=== PATIENT | male | born 1950 | race African-American/Black ===

== ENCOUNTER 2016-10-29 16:20 | Emergency (ER) | payer MEDICARE, MEDICAID ==
[~2016-10-29] VITALS: Ht 185.4 cm; Wt 75.0 kg
[~2016-10-29 16:20] MED LIST: AMLO5TAB2 PO
[2016-10-29 16:21] VITALS: BP 125/73; PULSE 83; RESP 14; TEMP 98.2; O2SAT 98
--- NOTE | 2016-10-29 16:30 | PD ---
HPI . right great toe laceration Chief Complaint: Laceration/Skin Injury Time Seen by Provider: 16:30 Travel History International Travel<30 days: No Contact w/Intl Traveler<30days: No Traveled to known affect area: No History of Present Illness HPI 66 yr old male here with right great toe laceration he sustained earlier today while working with some metal. He says the blade popped off a device he was using and fell down cutting his toe. He was wearing flip flops. He does not recall date of his last tetanus. PFSH Past Medical History Blood Disorders: No Cancer: No Cardiovascular Problems: No Diminished Hearing: No Endocrine: No Gastrointestinal Disorders: No Genitourinary: No Hypertension: Yes Implanted Vascular Access Dvce: No Musculoskeletal: Yes (NECK SLIPPED DISCS) Neurologic: No Psychiatric: No Reproductive: No Respiratory: No Immunizations Current: No ?: Not Past Surgical History Eye Surgery: Yes (GLAUCOMA) Tonsillectomy: Yes Other Surgery: Yes Social History Alcohol Use: No Tobacco Use: Yes (06/25 PPD) Substance Use: No Allergies-Medications (Allergen,Severity, Reaction): Coded Allergies: No Known Allergies (Verified , 05/29/16) Reported Meds & Prescriptions Reported Meds & Active Scripts Active Amlodipine (Amlodipine Besylate) 5 Mg Tab 5 Mg PO DAILY Review of Systems General / Constitutional: No: Fever Eyes: No: Visual changes HENT: No: Headaches Cardiovascular: No: Chest Pain or Discomfort Respiratory: No: Shortness of Breath Gastrointestinal: No: Abdominal Pain Genitourinary: No: Dysuria Musculoskeletal: No: Pain Skin: Positive Other (right great toe laceration ), No Rash Neurologic: No: Weakness Psychiatric: No: Depression Endocrine: No: Polydipsia Hematologic/Lymphatic: No: Easy Bruising Physical Exam Narrative GENERAL: AAO x 3, no acute distress, Well-nourished, well-developed patient. SKIN: Warm and dry. No visible rashes or bruising. 2 cm laceration over the right great toe/ no tendon, bone, nerve, or vessel injury HEAD: Normocephalic and atraumatic. EYES: No scleral icterus. No injection or drainage. ENT: No nasal drainage noted. Mucous membranes pink. Airway patent. NECK: Supple, trachea midline. No JVD. CARDIOVASCULAR: Regular rate and rhythm without murmurs, gallops, or rubs. RESPIRATORY: Breath sounds equal bilaterally. No accessory muscle use. No rhonchi or rales. GASTROINTESTINAL: Abdomen soft, non-tender, nondistended. EXTREMITIES: No cyanosis or edema. FULL ROM B/L feet and toes BACK: Nontender without obvious deformity. No CVA tenderness. PSYCH: AAO x 3, normal affect. Data Data Last Documented VS Vital Signs Date Time Temp Pulse Resp B/P Pulse Ox O2 Delivery O2 Flow Rate FiO2 10/29/16 16:21 98.2 83 14 125/73 98 Orders Tetanus/Diphtheria Tox Adult (Tetanus/Di (10/29/16 16:45) Lidocaine 1% Inj (50 Ml) (Xylocaine 1% I (10/29/16 16:45) Change Dressing (10/29/16 16:54) MDM Medical Decision Making Medical Screen Exam Complete: Yes Emergency Medical Condition: Yes Medical Record Reviewed: Yes Differential Diagnosis right great toe laceration, less likely fracture, less likely amputation Narrative Course 66 yr old male here with right great toe laceration he sustained earlier today while working with some metal. He says the blade popped off a device he was using and fell down cutting his toe. He was wearing flip flops. He does not recall date of his last tetanus. Patient seen and examined. He has a small 2 cm laceration over the top of the right great toe. Area was repaired with 5 sutures. Patient tolerated without incident. Tetanus was administered without incident. Patient was advised the sutures will need to be removed in 7-10 days. Patient verbalized understanding of instructions, questions were answered, and thanked me for their care. I advised them if their condition worsens, please return to the nearest emergency room for further care. Procedures Procedure Narrative LACERATION LOCATION: right great toe LENGTH:2 cm NUMBER OF STITCHES/KEERTHI:5 REPAIR: The area of the laceration was prepped with Betadine and sterilely draped. The laceration was infiltrated with 1% lidocaine. The wound was copiously irrigated and explored without evidence of foreign body, tendon injury or neurovascular injury. The wound was closed using 4-0 Ethilon. This was a single layer repair. A sterile dressing was applied. The patient was advised to keep the dressing clean and dry. Patient tolerated the procedure well. Diagnosis Primary Impression: Toe laceration Qualified Code: S91.111A - Laceration of right great toe without foreign body present or damage to nail, initial encounter Patient Instructions: General Instructions, Laceration (ED) Additional Instructions: Keep area clean and dry. Use gauze as we discussed and change 1-2 times a day. Watch for signs of infection: fever, redness, swelling, warmth, pus or drainage , red streaks around the cut, and increased pain from the area. If you received a tetanus shot, you may experience tenderness at the injection site. This is normal. Please return to emergency department if your symptoms return or worsen. Follow up with your primary care provider. These (5) sutures will need to be removed in the next 7-10 days. Please return to the emergency department or follow up with your primary care doctor. Disposition: 01 DISCHARGE HOME Jadyn Calle October 29, 2016 16:30
[2016-10-29] MEDS ORDERED: TETANUS/DIPHTHERIA TOXOID ADULT 0.5 ML VIAL IM ONE (16:45)
[2016-10-29] MEDS ORDERED: LIDOCAINE HCL 1% 50 ML VIAL INFIL ONE (16:45)
== END 2016-10-29 17:10 | disposition home or self-care (01) ==
LOC: NEPK 16:20
DX: S91.111A Laceration without foreign body of right great toe without damage to nail, initial encounter (principal); W26.8XXA Contact with other sharp object(s), not elsewhere classified, initial encounter; Z23 Encounter for immunization
CPT/HCPCS: 12001; 90471; 90714

== ENCOUNTER 2017-02-09 06:31 | Emergency (ER) | payer MEDICARE, MEDICAID ==
[~2017-02-09] VITALS: Ht 185.4 cm; Wt 70.0 kg
[2017-02-09 06:32] VITALS: BP 147/68; PULSE 70; RESP 16; TEMP 98.4; O2SAT 96
[2017-02-09] MEDS ORDERED: PRED50 PO (07:18)
--- NOTE | 2017-02-09 07:18 | PD ---
HPI . Coughing and some body aches for 2 days Chief Complaint: Cold / Flu Symptoms Time Seen by Provider: 07:12 Travel History International Travel<30 days: No Contact w/Intl Traveler<30days: No Traveled to known affect area: No History of Present Illness HPI 66-year-old male who denies any past medical history other than tobaccoism here with complaints of 2 days worth of coughing frequently, sore throat and it occasional body aches. Patient tells me that he had a sudden onset of frequent coughing. He denies any fever or chills. He is a smoker. He has no other complaints. His primary care providers Dr. Barnett. [facility] Past Medical History Blood Disorders: No Cancer: No Cardiovascular Problems: Yes (HTN) Diminished Hearing: No Endocrine: No Gastrointestinal Disorders: No Genitourinary: No Hypertension: Yes Implanted Vascular Access Dvce: No Musculoskeletal: Yes (NECK SLIPPED DISCS) Neurologic: No Psychiatric: No Reproductive: No Respiratory: No Immunizations Current: No Past Surgical History Eye Surgery: Yes (GLAUCOMA) Tonsillectomy: Yes Other Surgery: Yes Social History Alcohol Use: No Tobacco Use: Yes (1/2 PPD) Substance Use: No Allergies-Medications (Allergen,Severity, Reaction): Coded Allergies: No Known Allergies (Verified , 02/09/17) Reported Meds & Prescriptions Reported Meds & Active Scripts Active Prednisone 50 Mg Tab 50 Mg PO DAILY Review of Systems General / Constitutional: No: Fever Eyes: No: Visual changes HENT: Positive: Sore Throat, No: Headaches Cardiovascular: No: Chest Pain or Discomfort Respiratory: Positive: Cough, No: Shortness of Breath Gastrointestinal: No: Abdominal Pain Genitourinary: No: Dysuria Musculoskeletal: No: Pain Skin: No Rash Neurologic: No: Weakness Psychiatric: No: Depression Endocrine: No: Polydipsia Hematologic/Lymphatic: No: Easy Bruising Physical Exam Narrative GENERAL: AAO x 3, no acute distress, Well-nourished, well-developed patient. SKIN: Warm and dry. No visible rashes or bruising. HEAD: Normocephalic and atraumatic. EYES: No scleral icterus. No injection or drainage. EOM intact, PERRLA ENT: No nasal drainage noted. Mucous membranes pink. Airway patent. No oropharynx abnormality. No posterior pharynx erythema, edema or exudate. TMs normal bilaterally. NECK: Supple, trachea midline. No JVD. No lymphadenopathy CARDIOVASCULAR: Regular rate and rhythm without murmurs, gallops, or rubs. RESPIRATORY: Breath sounds equal bilaterally. No accessory muscle use. No rhonchi or rales. No wheezing GASTROINTESTINAL: Abdomen soft, non-tender, nondistended. EXTREMITIES: No cyanosis or edema. BACK: No obvious deformity. NEURO: CN II-12 intact, PSYCH: AAO x 3, normal affect. Data Data Last Documented VS Vital Signs Date Time Temp Pulse Resp B/P Pulse Ox O2 Delivery O2 Flow Rate FiO2 02/09/17 06:32 98.4 70 16 147/68 96 MDM Medical Decision Making Medical Screen Exam Complete: Yes Emergency Medical Condition: Yes Medical Record Reviewed: Yes Differential Diagnosis Acute bronchitis, pharyngitis, less likely pneumonia Narrative Course 66-year-old male here with what appears to be a viral bronchitis. Examination is fairly benign. He does have a slight dry cough. Imaging not recommended. I explained to patient I believe this is viral in nature. I do not believe this is a pneumonia. Recommend a course of steroids. I advised him that he will need to follow-up with his primary care provider. Smoking cessation discussed. Patient verbalized understanding of instructions, questions were answered, and thanked me for their care. I advised them if their condition worsens, please return to the nearest emergency room for further care. Diagnosis Primary Impression: Acute bronchitis Qualified Code: J20.9 - Acute bronchitis, unspecified organism Patient Instructions: General Instructions Additional Instructions: As we discussed the cough can last 6-8 weeks. Take medications as prescribed. If you are a smoker, try to quit. Follow up with your primary care provider. If you develop sudden onset or worsening of shortness or breath, please go to the nearest emergency room. Please return to emergency department if your symptoms return or worsen. Follow up with your primary care provider. Take medications as prescribed. Med/Other Pt SpecificInfo: Prescription(s) given Scripts Prednisone 50 Mg Tab50 Mg PO DAILY #5 TAB Prov:Giovanna Beth MD 02/09/17 Disposition: 01 DISCHARGE HOME Condition: Stable Jadyn Calle Feb 09, 2017 07:18
== END 2017-02-09 07:31 | disposition home or self-care (01) ==
LOC: NEPD 06:31
DX: J20.9 Acute bronchitis, unspecified (principal); R07.0 Pain in throat; M79.1 Myalgia; I10 Essential (primary) hypertension; F17.200 Nicotine dependence, unspecified, uncomplicated; Z86.79 Personal history of other diseases of the circulatory system; Z87.39 Personal history of other diseases of the musculoskeletal system and connective tissue
CPT/HCPCS: 99283

== ENCOUNTER 2017-12-10 10:39 | Observation (INO) | payer MEDICARE, MEDICAID ==
[~2017-12-10] VITALS: Ht 185.4 cm; Wt 80.0 kg
[2017-12-10] VITALS (8 sets, daily range): BP systolic 144–174; BP diastolic 72–93; PULSE 56–75; RESP 16–20; TEMP 97.5–97.7; O2SAT 95–99
[~2017-12-10 10:39] MED LIST changes: -AMLO5TAB2 PO; +PRED50 PO
[2017-12-10] MEDS ORDERED: SODIUM CHLORIDE 0.9% FLUSH 10 ML FLUSH IVF PRN (11:00)
[2017-12-10] MEDS ORDERED: ASPIRIN 325 MG TAB PO ONE (11:00)
--- NOTE | 2017-12-10 11:00 | PD ---
HPI Chief Complaint: Chest Pain Time Seen by Provider: 10:53 Travel History International Travel<30 days: No Contact w/Intl Traveler<30days: No Traveled to known affect area: No History of Present Illness HPI This patient complains of chest pain. Describes it as an aching and a pressure. He is vaguely having and across the sternum. Duration 1 week. Severity is moderate. It is not exertional. No alleviating factors. No exacerbating factors. He denies fever or chest wall injury or pleuritic component to the symptoms. PFSH Past Medical History Blood Disorders: No Cancer: No Cardiovascular Problems: Yes (HTN) Diminished Hearing: No Endocrine: No Gastrointestinal Disorders: No Genitourinary: No Hypertension: Yes Implanted Vascular Access Dvce: No Musculoskeletal: Yes (NECK SLIPPED DISCS) Neurologic: No Psychiatric: No Reproductive: No Respiratory: No Immunizations Current: No Past Surgical History Eye Surgery: Yes (GLAUCOMA) Tonsillectomy: Yes Other Surgery: Yes Social History Alcohol Use: No Tobacco Use: Yes (/2 PPD) Substance Use: No Allergies-Medications (Allergen,Severity, Reaction): Coded Allergies: No Known Allergies (Verified Adverse Reaction, Unknown, 12/10/17) Reported Meds & Prescriptions Reported Meds & Active Scripts Active Prednisone 50 Mg Tab 50 Mg PO DAILY Review of Systems General / Constitutional: No: Fever Eyes: No: Visual changes HENT: No: Headaches Cardiovascular: Positive: Chest Pain or Discomfort Respiratory: No: Shortness of Breath Gastrointestinal: No: Abdominal Pain Genitourinary: No: Dysuria Musculoskeletal: No: Pain Skin: No Rash Neurologic: No: Weakness Psychiatric: No: Depression Endocrine: No: Polydipsia Hematologic/Lymphatic: No: Easy Bruising Physical Exam Narrative GENERAL: Well-nourished, well-developed patient in no apparent distress. SKIN: Focused skin assessment reveals no rash and nodules. Skin is Warm and dry. HEAD: Atraumatic. Normocephalic. EYES: Pupils equal and round. No scleral icterus. No injection or drainage. ENT: No nasal bleeding or discharge. Mucous membranes pink and moist. NECK: Trachea midline. No JVD. CARDIOVASCULAR: Regular rate and rhythm. No murmur appreciated. RESPIRATORY: No accessory muscle use. Clear to auscultation. Breath sounds equal bilaterally. GASTROINTESTINAL: Abdomen soft, non-tender, nondistended. Hepatic and splenic margins not palpable. MUSCULOSKELETAL: No obvious deformities. No clubbing. No cyanosis. No edema. NEUROLOGICAL: Awake and alert. No obvious cranial nerve deficits. Motor grossly within normal limits. Normal speech. PSYCHIATRIC: Appropriate mood and affect; insight and judgment normal. Data Data Last Documented VS Vital Signs Date Time Temp Pulse Resp B/P (MAP) Pulse Ox O2 Delivery O2 Flow Rate FiO2 12/10/17 12:27 64 20 156/72 (100) 95 Room Air 12/10/17 10:42 97.7 Orders Orders Electrocardiogram (12/10/17 10:57) Basic Metabolic Panel (Bmp) (12/10/17 10:57) Ckmb (Isoenzyme) Profile (12/10/17 10:57) Complete Blood Count With Diff (12/10/17 10:57) Prothrombin Time / Inr (Pt) (12/10/17 10:57) Act Partial Throm Time (Ptt) (12/10/17 10:57) Troponin I (12/10/17 10:57) Chest, Single Ap (12/10/17 10:57) Ecg Monitoring (12/10/17 10:57) Iv Access Insert/Monitor (12/10/17 10:57) Oximetry (12/10/17 10:57) Aspirin (Aspirin) (12/10/17 11:00) Sodium Chloride 0.9% Flush (Ns Flush) (12/10/17 11:00) CKMB (12/10/17 11:20) CKMB% (12/10/17 11:20) Labs Laboratory Tests Test 12/10/17 11:20 White Blood Count 3.4 TH/MM3 Red Blood Count 4.20 MIL/MM3 Hemoglobin 13.1 GM/DL Hematocrit 38.6 % Mean Corpuscular Volume 92.0 FL Mean Corpuscular Hemoglobin 31.1 PG Mean Corpuscular Hemoglobin Concent 33.8 % Red Cell Distribution Width 14.1 % Platelet Count 238 TH/MM3 Mean Platelet Volume 7.3 FL Neutrophils (%) (Auto) 45.3 % Lymphocytes (%) (Auto) 37.8 % Monocytes (%) (Auto) 14.8 % Eosinophils (%) (Auto) 1.8 % Basophils (%) (Auto) 0.3 % Neutrophils # (Auto) 1.6 TH/MM3 Lymphocytes # (Auto) 1.3 TH/MM3 Monocytes # (Auto) 0.5 TH/MM3 Eosinophils # (Auto) 0.1 TH/MM3 Basophils # (Auto) 0.0 TH/MM3 CBC Comment DIFF FINAL Differential Comment Prothrombin Time 10.7 SEC Prothromb Time International Ratio 1.1 RATIO Activated Partial Thromboplast Time 27.5 SEC Blood Urea Nitrogen 21 MG/DL Creatinine 1.24 MG/DL Random Glucose 102 MG/DL Calcium Level 8.5 MG/DL Sodium Level 141 MEQ/L Potassium Level 3.9 MEQ/L Chloride Level 110 MEQ/L Carbon Dioxide Level 23.8 MEQ/L Anion Gap 7 MEQ/L Estimat Glomerular Filtration Rate 70 ML/MIN Total Creatine Kinase 271 U/L Creatine Kinase MB 1.1 NG/ML Troponin I LESS THAN 0.02 NG/ML MDM Medical Decision Making Medical Screen Exam Complete: Yes Emergency Medical Condition: Yes Medical Record Reviewed: Yes Differential Diagnosis Differential diagnosis includes NH, angina, pericarditis, pleurisy, GERD, anxiety. Narrative Course I have reviewed the patient's electronic medical record. IV placed and labs sent I gave him an aspirin I reviewed his EKG which shows sinus rhythm but no ST elevation or ectopy Reviewed his chest x-ray which is negative General blood counts and metabolic studies are normal including the first set of cardiac enzymes He will be a 23 hour observation in the chest pain center to rule out cardiac cause of his symptoms Diagnosis Primary Impression: Chest pain Qualified Codes: R07.9 - Chest pain, unspecified Admitting Information Admitting Physician Requests: Observation Jermain Chavez MD Dec 10, 2017 11:00
[2017-12-10 11:40] LABS: AUTOMATED NEUTROPHIL # 1.6 TH/MM3 (1.8-7.7); BASOPHIL % 0.3 % (0.0-2.0); EOSINOPHIL # 0.1 TH/MM3 (0-0.4); EOSINOPHIL % 1.8 % (0.0-4.0); HEMATOCRIT 38.6 % (39.0-51.0); HEMOGLOBIN 13.1 GM/DL (13.0-17.0); LYMPH % 37.8 % (9.0-44.0); LYMPHOCYTE # 1.3 TH/MM3 (1.0-4.8); MEAN CORPUSCULAR HEMOGLOBIN 31.1 PG (27.0-34.0); MEAN CORPUSCULAR HGB CONC 33.8 % (32.0-36.0); MEAN PLATELET VOLUME 7.3 FL (7.0-11.0); MONO % 14.8 % (0.0-8.0); MONOCYTE # 0.5 TH/MM3 (0-0.9); NEUT % 45.3 % (16.0-70.0); PLATELET COUNT 238 TH/MM3 (150-450); RED CELL DISTRIBUTION WIDTH 14.1 % (11.6-17.2); WHITE BLOOD COUNT 3.4 TH/MM3 (4.0-11.0)
[2017-12-10 11:46] LABS: INTERNATIONAL NORMALIZED RATIO 1.1 RATIO; PROTHROMBIN TIME - PATIENT 10.7 SEC (9.8-11.6)
--- NOTE | 2017-12-10 11:49 | RADRPT ---
EXAM DATE: 12/10/2017 11:24 AM EDT AGE/SEX: 67 years / Male INDICATIONS: Chest pressure. CLINICAL DATA: This is the patient's initial encounter. Patient reports that signs and symptoms have been present for 1 week and indicates a pain score of 5/10. MEDICAL/SURGICAL HISTORY: . previous smoker None. COMPARISON: [facility] [place], 05/29/[place]. . FINDINGS: A single AP view of the chest demonstrates the lungs to be symmetrically aerated without evidence of mass, infiltrate or effusion. The lungs are hyperaerated bilaterally. The cardiomediastinal contours are unremarkable. Osseous structures are intact. CONCLUSION: No acute intrathoracic disease. Stable examination. Electronically signed by: Saroj Earl MD 12/10/2017 11:47 AM EDT
[2017-12-10 11:56] LABS: BICARBONATE 23.8 MEQ/L (21.0-32.0); BLOOD UREA NITROGEN 21 MG/DL (7-18); CALCIUM 8.5 MG/DL (8.5-10.1); CHLORIDE 110 MEQ/L (98-107); CREATININE 1.24 MG/DL (0.60-1.30); GLOMERULAR FILTRATION RATE 70 ML/MIN (>89); GLUCOSE,RANDOM 102 MG/DL (74-106); SODIUM (NA) 141 MEQ/L (136-145)
[2017-12-10 12:00] LABS: TROPONIN I LESS THAN 0.02 NG/ML (0.02-0.05)
[2017-12-10] MEDS ORDERED: ACETAMINOPHEN 500 MG CPLT PO PRN (14:00)
[2017-12-10] MEDS ORDERED: NITROGLYCERIN 0.4 MG SL 25 TABS/BTL SL PRN (14:00)
[2017-12-10] MEDS ORDERED: ONDANSETRON ODT 4 MG TAB PO PRN (14:00)
--- NOTE | 2017-12-10 14:58 | HHI.HP ---
HPI Primary Care Physician Terence Barnett DO Chief Complaint Chest pain History of Present Illness 67-year-old male with 50 pack year history of tobacco use presents to ER for further evaluation of nonexertional chest pain. Onset one week. Location substernal. Characterized as pressure. Severity moderate. No radiation. Duration constant, notices more during waking hours. No associated symptoms of nausea, vomiting, dyspnea, or diaphoresis. No precipitating or relieving. Endorses similar pain with "heat exhaustion" years ago. Came to ER for further evaluation due to prolonged duration of discomfort. No recent illness, fever, chills, or cough. Quit smoking 1 year ago. No known COPD. Review of Systems General: No fatigue, weakness, fever, chills, recent illness, or change in appetite. Has been in his general state of health HEENT: No CAMPOS, no nasal congestion or drainage, no dysphasia CV: Continues to have chest pressure as stated above. RESP: No SOB, cough, wheeze, history of COPD or asthma. Former smoker. GI: No nausea, vomiting, or bowel change. No unintentional weight gain or weight loss. : No dysuria, urgency, frequency EXT: No lower leg edema, no paraesthesias, no claudication MS: No discomfort, injury or change in ROM NEURO: No dizziness, difficulty with balance, LOC, or motor/sensory deficits PSYCH: No anxiety, depression, suicidal ideation SKIN: No rashes, no concerning lesions Past Family Social History Allergies: Coded Allergies: No Known Allergies (Verified Allergy, Unknown, 12/10/17) Past Medical History Hypertension, glaucoma Past Surgical History Right eye cataract surgery (3 weeks ago), tonsillectomy Reported Medications Reported Meds & Active Scripts Active Glaucoma eyedrops daily name unknown Active Ordered Medications Current Medications Medications (Trade) Dose Ordered Sig/Trudy Route Start Time Stop Time Status Last Admin (NS Flush) 2 ml UNSCH PRN IVF 12/10/17 11:00 (NS Flush) 2 ml BID IV FLUSH 12/10/17 21:00 (Tylenol) 500 mg Q4H PRN PO 12/10/17 14:00 (Nitrostat Sl) 0.4 mg Q5M PRN SL 12/10/17 14:00 (Aspirin) 325 mg DAILY PO 12/11/17 09:00 (Zofran Odt) 4 mg Q6H PRN PO 12/10/17 14:00 Social History Reports history of hypertension, states he quit taking medication years ago when his primary doctor never restarted medication. No known diabetes, hyperlipidemia, or coronary artery disease. Former smoker, [id number] history. Quit one year ago. Denies any alcohol or illegal drug use. Past cardiac testing 05/30/16 Lexiscan-no evidence of perfusion defects. EF 41%. Normal wall motion. Physical Exam Vital Signs Vital Signs Date Time Temp Pulse Resp B/P (MAP) Pulse Ox O2 Delivery O2 Flow Rate FiO2 12/10/17 14:35 97.7 56 18 174/93 (120) 99 12/10/17 12:27 64 20 156/72 (100) 95 Room Air 12/10/17 11:51 64 18 98 Room Air 12/10/17 11:30 62 18 153/72 (99) 98 Room Air 12/10/17 10:42 97.7 75 20 144/80 (101) 97 Physical Exam GENERAL: Alert WN, WD, NAD, pleasant, tall, thin -[place] male HEAD: NC, AT EYES: Sclera clear, conjunctiva without injection, pupils equal and round, cataract left eye ENT: Mucous membranes pink and moist CV: RRR, without murmur, rub, or gallop, no JVD, no S3-S4. No carotid bruits. Chest wall nontender with palpation. RESP: Clear lungs throughout bilateral, no crackles, wheeze, rhonchi, symmetrical chest rise, nonlabored, able to speak in full sentences ABD: Soft, NT, ND, no masses, positive bowel tones EXT: Pulses +2x4, no dependent edema, right ankle large, soft tissue mass MS: Normal tone x4 extremities, no obvious deformities, full range of motion NEURO: CN II through CN XII grossly intact, motor strength 5/5, gait WNL PSYCH: A+O x3, pleasant affect, appropriate speech, mood, insight and judgment SKIN: Normal turgor, normal texture, no lesions, no rashes Laboratory Laboratory Tests Test 12/10/17 11:20 White Blood Count 3.4 Red Blood Count 4.20 Hemoglobin 13.1 Hematocrit 38.6 Mean Corpuscular Volume 92.0 Mean Corpuscular Hemoglobin 31.1 Mean Corpuscular Hemoglobin Concent 33.8 Red Cell Distribution Width 14.1 Platelet Count 238 Mean Platelet Volume 7.3 Neutrophils (%) (Auto) 45.3 Lymphocytes (%) (Auto) 37.8 Monocytes (%) (Auto) 14.8 Eosinophils (%) (Auto) 1.8 Basophils (%) (Auto) 0.3 Neutrophils # (Auto) 1.6 Lymphocytes # (Auto) 1.3 Monocytes # (Auto) 0.5 Eosinophils # (Auto) 0.1 Basophils # (Auto) 0.0 CBC Comment DIFF FINAL Differential Comment Prothrombin Time 10.7 Prothromb Time International Ratio 1.1 Activated Partial Thromboplast Time 27.5 Blood Urea Nitrogen 21 Creatinine 1.24 Random Glucose 102 Calcium Level 8.5 Sodium Level 141 Potassium Level 3.9 Chloride Level 110 Carbon Dioxide Level 23.8 Anion Gap 7 Estimat Glomerular Filtration Rate 70 Total Creatine Kinase 271 Creatine Kinase MB 1.1 Troponin I LESS THAN 0.02 Result Diagram: 12/10/17 1120 12/10/17 1120 Imaging Last 48 hours Impressions Chest X-Ray 12/10/17 1057 Signed Impressions: CONCLUSION: No acute intrathoracic disease. Stable examination. Course EKG Normal sinus rhythm, normal axis, no ST-T segment changes, criteria for LVH Caprini VTE Risk Assessment Caprini VTE Risk Assessment: Mod/High Risk (score >= 2) Caprini Risk Assessment Model Point Value = 1 Point Value = 2 Point Value = 3 Point Value = 5 Age 41-60 Minor surgery BMI > 25 kg/m2 Swollen legs Varicose veins or History of unexplained or recurrent spontaneous Oral contraceptives or hormone replacement Sepsis (< 1 month) Serious lung disease, including pneumonia (< 1 month) Abnormal pulmonary function Acute myocardial infarction Congestive heart failure (< 1 month) History of inflammatory bowel disease Medical patient at bed rest Age 61-74 Arthroscopic surgery Major open surgery (> 45 min) Laparoscopic surgery (> 45 min) Malignancy Confined to bed (> 72 hours) Immobilizing plaster cast Central venous access Age >= 75 History of VTE Family history of VTE Factor V Leiden Prothrombin [id number] Lupus anticoagulant Anticardiolipin antibodies Elevated serum homocysteine Heparin-induced thrombocytopenia Other congenital or acquired thrombophilia Stroke (< 1 month) Elective arthroplasty Hip, pelvis, or leg fracture Acute spinal cord injury (< 1 month) Prophylaxis Regimen Total Risk Factor Score Risk Level Prophylaxis Regimen 0-1 Low Early ambulation 2 Moderate Order ONE of the following: *Sequential Compression Device (SCD) *Heparin 5000 units SQ BID 3-4 Higher Order ONE of the following medications: *Heparin 5000 units SQ TID *Enoxaparin/Lovenox 40 mg SQ daily (WT < 150 kg, CrCl > 30 mL/min) *Enoxaparin/Lovenox 30 mg SQ daily (WT < 150 kg, CrCl > 10-29 mL/min) *Enoxaparin/Lovenox 30 mg SQ BID (WT < 150 kg, CrCl > 30 mL/min) AND/OR *Sequential Compression Device (SCD) 5 or more Highest Order ONE of the following medications: *Heparin 5000 units SQ TID (Preferred with Epidurals) *Enoxaparin/Lovenox 40 mg SQ daily (WT < 150 kg, CrCl > 30 mL/min) *Enoxaparin/Lovenox 30 mg SQ daily (WT < 150 kg, CrCl > 10-29 mL/min) *Enoxaparin/Lovenox 30 mg SQ BID (WT < 150 kg, CrCl > 30 mL/min) AND *Sequential Compression Device (SCD) Assessment and Plan Assessment and Plan #1 Atypical chest pain-admitted to chest pain center. Rule out ACS with 3 sets of EKGs and cardiac enzymes. Monitor on telemetry overnight. Will be seen and evaluated by Dr. Althea Brady. Discussed options for likely cardiac testing in a.m. Most likely will require chemical stress testing, he was unable to achieve target heart rate during last exercise cardiac exam. #2 Hypertension-continue to monitor, amlodipine 5 mg p.o. daily, discussed importance of tight blood pressure control, follow-up with Dr. Barnett upon discharge. Arlen Epperson Dec 10, 2017 14:58
[2017-12-10] MEDS: amLODIPine BESYLATE 5 MG TAB PO SCH (15:03)
[2017-12-10 15:46] LABS: TROPONIN I LESS THAN 0.02 NG/ML (0.02-0.05)
[2017-12-10 18:17] LABS: TROPONIN I LESS THAN 0.02 NG/ML (0.02-0.05)
[2017-12-10] MEDS: SODIUM CHLORIDE 0.9% FLUSH 10 ML FLUSH IV FLUSH SCH (23:10)
[2017-12-11 00:32] VITALS: BP 139/60; PULSE 65; RESP 18; TEMP 97.5; O2SAT 98
[2017-12-11 04:22] VITALS: BP 147/67; PULSE 61; RESP 17; TEMP 97.6; O2SAT 98
[2017-12-11 08:00] VITALS: BP 142/78; PULSE 63; RESP 18; TEMP 98.2; O2SAT 99
[2017-12-11] MEDS ORDERED: ASPIRIN 325 MG TAB PO SCH (09:00)
[2017-12-11] MEDS: amLODIPine BESYLATE 5 MG TAB PO SCH (09:12)
[2017-12-11] MEDS: SODIUM CHLORIDE 0.9% FLUSH 10 ML FLUSH IV FLUSH SCH (09:13)
--- NOTE | 2017-12-11 10:03 | PD.CARD.PN ---
Subjective Subjective Remarks Slept well, continues to have chest pressure, also reports sour taste and substernal burning. Objective Medications Current Medications Medications (Trade) Dose Ordered Sig/Trudy Route Start Time Stop Time Status Last Admin (NS Flush) 2 ml UNSCH PRN IVF 12/10/17 11:00 (NS Flush) 2 ml BID IV FLUSH 12/10/17 21:00 12/11/17 09:13 (Tylenol) 500 mg Q4H PRN PO 12/10/17 14:00 12/11/17 09:13 (Nitrostat Sl) 0.4 mg Q5M PRN SL 12/10/17 14:00 (Aspirin) 325 mg DAILY PO 12/11/17 09:00 12/11/17 09:12 (Zofran Odt) 4 mg Q6H PRN PO 12/10/17 14:00 (Norvasc) 5 mg DAILY PO 12/10/17 15:00 12/11/17 09:12 Vital Signs / I&O Vital Signs Date Time Temp Pulse Resp B/P (MAP) Pulse Ox O2 Delivery O2 Flow Rate FiO2 12/11/17 08:00 98.2 63 18 142/78 (99) 99 12/11/17 04:22 97.6 61 17 147/67 (93) 98 12/11/17 00:32 97.5 65 18 139/60 (86) 98 12/10/17 21:21 99 12/10/17 21:07 97.5 57 16 149/77 (101) 97 12/10/17 17:51 97.6 66 18 160/83 (108) 98 12/10/17 17:07 64 12/10/17 14:35 97.7 56 18 174/93 (120) 99 12/10/17 12:27 64 20 156/72 (100) 95 Room Air 12/10/17 11:51 64 18 98 Room Air 12/10/17 11:30 62 18 153/72 (99) 98 Room Air 12/10/17 10:42 97.7 75 20 144/80 (101) 97 Physical Exam GENERAL: Alert WN, WD, NAD, pleasant, tall, thin -Spanish male HEAD: NC, AT CV: RRR, without murmur, rub, or gallop, no JVD, no S3-S4. RESP: Clear lungs throughout bilateral, no crackles, wheeze, rhonchi, symmetrical chest rise, nonlabored, able to speak in full sentences NEURO: motor strength 5/5, gait WNL PSYCH: A+O x3, pleasant affect, appropriate speech, mood, insight and judgment SKIN: Normal turgor, normal texture Laboratory Laboratory Tests Test 12/10/17 11:20 12/10/17 14:45 12/10/17 17:20 White Blood Count 3.4 TH/MM3 Red Blood Count 4.20 MIL/MM3 Hemoglobin 13.1 GM/DL Hematocrit 38.6 % Mean Corpuscular Volume 92.0 FL Mean Corpuscular Hemoglobin 31.1 PG Mean Corpuscular Hemoglobin Concent 33.8 % Red Cell Distribution Width 14.1 % Platelet Count 238 TH/MM3 Mean Platelet Volume 7.3 FL Neutrophils (%) (Auto) 45.3 % Lymphocytes (%) (Auto) 37.8 % Monocytes (%) (Auto) 14.8 % Eosinophils (%) (Auto) 1.8 % Basophils (%) (Auto) 0.3 % Neutrophils # (Auto) 1.6 TH/MM3 Lymphocytes # (Auto) 1.3 TH/MM3 Monocytes # (Auto) 0.5 TH/MM3 Eosinophils # (Auto) 0.1 TH/MM3 Basophils # (Auto) 0.0 TH/MM3 CBC Comment DIFF FINAL Differential Comment Prothrombin Time 10.7 SEC Prothromb Time International Ratio 1.1 RATIO Activated Partial Thromboplast Time 27.5 SEC Blood Urea Nitrogen 21 MG/DL Creatinine 1.24 MG/DL Random Glucose 102 MG/DL Calcium Level 8.5 MG/DL Sodium Level 141 MEQ/L Potassium Level 3.9 MEQ/L Chloride Level 110 MEQ/L Carbon Dioxide Level 23.8 MEQ/L Anion Gap 7 MEQ/L Estimat Glomerular Filtration Rate 70 ML/MIN Total Creatine Kinase 271 U/L 276 U/L 252 U/L Creatine Kinase MB 1.1 NG/ML 1.2 NG/ML 1.0 NG/ML Troponin I LESS THAN 0.02 NG/ML LESS THAN 0.02 NG/ML LESS THAN 0.02 NG/ML Imaging Last 24 hours Impressions Chest X-Ray 12/10/17 1057 Signed Impressions: CONCLUSION: No acute intrathoracic disease. Stable examination. Assessment and Plan Assessment and Plan #1 Atypical chest pain-monitor on telemetry overnight. Ruled out ACS 3 sets of EKGs and cardiac enzymes. Proceed with plan for exercise stress test this a.m. Continues to have chest pressure, suspecting GI involvement. GI cocktail ordered, consider ranitidine upon discharge. #2 Hypertension-continue to monitor, amlodipine 5 mg p.o. daily, discussed importance of tight blood pressure control, follow-up with Dr. Barnett upon discharge. Arlen Epperson Dec 11, 2017 10:03
[2017-12-11 10:14] VITALS: RESP 18
--- NOTE | 2017-12-11 10:34 | HHI.DCPOC ---
Discharge Care Plan Diagnosis: (1) Hypertension (2) GERD (gastroesophageal reflux disease) (3) Atypical chest pain Goals to Promote Your Health * To prevent worsening of your condition and complications * To maintain your health at the optimal level Directions to Meet Your Goals Take your medications as prescribed Follow your dietary instruction Follow activity as directed Keep your appointments as scheduled Take your immunizations and boosters as scheduled If your symptoms worsen call your PCP, if no PCP go to Urgent Care Center or Emergency Room Smoking is Dangerous to Your Health. Avoid second hand smoke Call the 24-hour hour crisis hotline for domestic abuse at Arlen Epperson Dec 11, 2017 10:34
[2017-12-11] MEDS ORDERED: AMLO5TAB2 PO (10:36)
[2017-12-11] MEDS ORDERED: OMEP20TA93 PO (10:36)
[2017-12-11] MEDS ORDERED: ALUMINUM/MAGNESIUM/SIMETH 30 ML CUP PO ONE (10:45)
[2017-12-11] MEDS ORDERED: LIDOCAINE VISCOUS 2% SOLN 15 ML UDC SWISH-SWAL ONE (10:45)
--- NOTE | 2017-12-11 14:11 | EKG ---
Date Performed: 12/11/2017 Time Performed: 05:16:09 PTAGE: 67 years EKG: Sinus rhythm MINIMAL VOLTAGE CRITERIA FOR LVH, CONSIDER NORMAL VARIANT BORDERLINE ECG PREVIOUS TRACING : 12/10/2017 15.06 Since previous tracing, no significant change noted DOCTOR: Ankur Fagan Interpretating Date/Time 12/11/2017 14:11:38
--- NOTE | 2017-12-11 14:16 | EKG ---
Date Performed: 12/10/2017 Time Performed: 15:06:28 PTAGE: 67 years EKG: SINUS BRADYCARDIA WITH FIRST DEGREE AV BLOCK POSSIBLE LEFT ATRIAL ENLARGEMENT POSSIBLE LEFT VENTRICULAR HYPERTROPHY ABNORMAL ECG PREVIOUS TRACING : 12/10/2017 10.51 Since previous tracing, no significant change noted DOCTOR: Ankur Fagan Interpretating Date/Time 12/11/2017 14:14:09
--- NOTE | 2017-12-11 14:17 | EKG ---
Date Performed: 12/10/2017 Time Performed: 10:51:16 PTAGE: 67 years EKG: Sinus rhythm POSSIBLE LEFT ATRIAL ENLARGEMENT NONSPECIFIC T-WAVE ABNORMALITY BORDERLINE ECG PREVIOUS TRACING : 05/29/2016 18.20 Since previous tracing, T wave changes are more prominent DOCTOR: Ankur Fagan Interpretating Date/Time 12/11/2017 14:15:01
--- NOTE | 2017-12-11 14:19 | TR ---
Date Performed: 12/11/2017 Time Performed: 09:36:50 DOCTOR: Ankur Fagan DRUG LIST: CLINICAL HISTORY: CHEST PAIN REASON FOR TEST: REASON FOR ENDING: OBSERVATION: CONCLUSION: Jas protocol completed. Stopped sec to reaching target heart rate and leg fatigue. Maximum NI=182 Target HR Rmbayegt=690.0% Maximum UG=478/82 Total Exercise Time=7:28. No reprod chest pain. No ectopy. Upsloping st segments. Normal bp response. Good exercise tolerance. Recovery quick and unremakrable. COMMENTS: Patient exercised using the Jas protocol. No electrocardiographic changes were seen to suggest ischemia. Hemodynamic response to exercise was normal. No significant arrhythmia was prese nt.
== END 2017-12-11 11:38 | disposition home or self-care (01) ==
LOC: NEPC 10:39 → NEDA 12:58 → NEPHCDU 14:38
PROVIDERS: ADMIT Internal Medicine Interventional Cardiology; ATTEND Internal Medicine Interventional Cardiology
DX: R07.89 Other chest pain (principal); K21.9 Gastro-esophageal reflux disease without esophagitis; I10 Essential (primary) hypertension; Z87.891 Personal history of nicotine dependence
CPT/HCPCS: 71045; 80048; 82550; 82552; 84484; 85025; 85610; 85730; 93005; 93017; 99285; G0378

== ENCOUNTER 2017-12-16 18:04 | Emergency (ER) | payer MEDICARE, MEDICAID ==
[~2017-12-16] VITALS: Ht 185.4 cm; Wt 79.5 kg
[~2017-12-16 18:04] MED LIST changes: +AMLO5TAB2 PO; +OMEP20TA93 PO; -PRED50 PO
[2017-12-16 18:12] VITALS: BP 169/79; PULSE 68; RESP 16; TEMP 97.8; O2SAT 98
--- NOTE | 2017-12-16 18:25 | PD ---
HPI Chief Complaint: Pain: Acute or Chronic Time Seen by Provider: 18:24 Travel History International Travel<30 days: No Contact w/Intl Traveler<30days: No Traveled to known affect area: No History of Present Illness HPI 59-year-old male with history of glaucoma presents emergency department for evaluation of left eye pain. Patient had cataract surgery done today by Dr. Mariscal. Patient states during and since the procedure he has been having left eye pain. He states it is not exacerbated or alleviated by anything. He reports he has been taking Tylenol as he was instructed to do but it is not helping. He denies any visual changes. He states the pain is a constant, ache, pressure feeling. He has no other symptoms to report. PFSH Past Medical History Blood Disorders: No Cancer: No Cardiovascular Problems: Yes (HTN) Diminished Hearing: No Endocrine: No Gastrointestinal Disorders: No Genitourinary: No Hypertension: Yes Implanted Vascular Access Dvce: No Musculoskeletal: Yes (NECK SLIPPED DISCS) Neurologic: No Psychiatric: No Reproductive: No Respiratory: No Immunizations Current: No Past Surgical History Eye Surgery: Yes (GLAUCOMA) Tonsillectomy: Yes Other Surgery: Yes Social History Alcohol Use: No Tobacco Use: Yes (/ PPD) Substance Use: No Allergies-Medications (Allergen,Severity, Reaction): Coded Allergies: No Known Allergies (Verified Allergy, Unknown, 12/16/17) Reported Meds & Prescriptions Reported Meds & Active Scripts Active Percocet (Oxycodone-Acetaminophen) 5-325 mg Tab 1 Tab PO Q6H PRN Omeprazole 20 Mg Tab 20 Mg PO DAILY Amlodipine (Amlodipine Besylate) 5 Mg Tab 5 Mg PO DAILY Review of Systems Except as stated in HPI: all other systems reviewed are Neg Physical Exam Narrative GENERAL: Well-nourished, well-developed male patient, no acute distress SKIN: Focused skin assessment warm/dry. HEAD: Normocephalic. No erythema or edema EYES: No scleral icterus. No injection or drainage. Patch over the left eye NECK: Supple, trachea midline. No JVD or lymphadenopathy. CARDIOVASCULAR: Regular rate and rhythm without murmurs, gallops, or rubs. RESPIRATORY: Breath sounds equal bilaterally. No accessory muscle use. GASTROINTESTINAL: Abdomen soft, non-tender, nondistended. MUSCULOSKELETAL: No cyanosis, or edema. BACK: Nontender without obvious deformity. No CVA tenderness. Data Data Last Documented VS Vital Signs Date Time Temp Pulse Resp B/P (MAP) Pulse Ox O2 Delivery O2 Flow Rate FiO2 12/16/17 18:12 97.8 68 16 169/79 (109) 98 Orders Orders Ed Discharge Order (12/16/17 18:43) Oxycodone-Acetamin 5-325 Mg (Percocet (12/16/17 19:00) MDM Medical Decision Making Medical Screen Exam Complete: Yes Emergency Medical Condition: Yes Medical Record Reviewed: Yes Differential Diagnosis Postop pain versus increased ocular pressure versus infection Narrative Course 67-year-old male presents emergency department for evaluation left eye pain. Patient had cataract surgery today. I spoke with Dr. Lundberg with [facility]. He spoke with Dr. Mariscal. They recommend the patient continue his drops as already provided and his pain regimen that they encouraged. They also encourage him to use his glaucoma drops, putting 1 drop atenolol and tonight. I will also give him additional pain control. He is encouraged to contact the office tomorrow and return immediately with acute worsening symptoms. Diagnosis Primary Impression: Post-op pain Additional Impression: Status post cataract surgery Qualified Codes: Z98.42 - Cataract extraction status, left eye Referrals: [facility] Patient Instructions: Eye Pain (ED), General Instructions Additional Instructions: Contact your surgeon tomorrow Follow-up the primary care provider Return immediately with acute worsening symptoms Med/Other Pt SpecificInfo: Prescription(s) given Scripts Oxycodone-Acetaminophen (Percocet) 5-325 mg Tab 1 TAB PO Q6H Y for PAIN GREATER THAN 6, #12 TAB 0 Refills Prov: Qing Dobbins 12/16/17 Disposition: 01 DISCHARGE HOME Condition: Stable Qing Dobbins Dec 16, 2017 18:25
[2017-12-16] MEDS ORDERED: PERC5TAB12 PO (18:45)
[2017-12-16] MEDS ORDERED: oxyCODONE/ACETAMINOPHEN 5 MG/325 MG TAB PO ONE (19:00)
== END 2017-12-16 19:02 | disposition home or self-care (01) ==
LOC: NEPK 18:04
DX: G89.18 Other acute postprocedural pain (principal); F17.200 Nicotine dependence, unspecified, uncomplicated; I10 Essential (primary) hypertension; Z98.42 Cataract extraction status, left eye
CPT/HCPCS: 99283